=== PATIENT | female | born 1990 | race Hispanic/Latino ===

== ENCOUNTER 2023-06-01 21:04 | Emergency (ER) | payer SELFPAY ==
[2023-06-01] MEDS ORDERED: ONDANSETRON 4 MG/2 ML VIAL ONE (21:35)
[2023-06-01] MEDS ORDERED: NA CHLORIDE 0.9% 1,000 ML ONE (21:35)
[2023-06-01] MEDS ORDERED: MORPHINE 4 MG/ML SYR ONE (21:35)
[2023-06-01 21:58] LABS: Absolute Lymphocytes (CBC) 0.4 K/uL (0.7-4.9); Hematocrit 36.3 % (36.0-45.0); Lymphocytes % 5.6 % (15.3-44.8); MCV 78.9 fL (80-100); Platelets 236 thou/uL (152-406)
[2023-06-01 21:59] LABS: Specific Gravity 1.025 (1.005-1.030)
[2023-06-01 22:00] LABS: Specific Gravity 1.025 (1.005-1.030); Urine Bacteria None Seen /HPF (<20); Urine Bilirubin 1+ (Negative); Urine Blood Negative (Negative); Urine Clarity Extremely Turbid (Clear); Urine Color Dark-Yellow (Yellow); Urine Glucose NEGATIVE (Negative); Urine Mucus Slight /HPF (None Seen); Urine Protein 1+ (Negative); Urine RBC <5 /HPF (None Seen); Urine Urobilinogen 3+ (Normal); Urine pH 7.5 (5.0-7.0)
[2023-06-01 22:20] LABS: Albumin 3.9 g/dL (3.4-5.0); Bilirubin Total 2.6 mg/dL (0.2-1.0); Potassium 3.2 mEq/L (3.5-5.1)
[2023-06-01 22:40] LABS: Platelet Estimate ADEQ; White Blood Cell Scan OK (OK)
[2023-06-01 22:41] LABS: Blood Morphology Comment NOT SEEN (NOT SEEN)
--- NOTE | 2023-06-01 22:41 | RAD REPORT ---
EXAM DESCRIPTION: US - Abdomen Exam Limited - 06/01/2023 10:16 pm CLINICAL HISTORY: eval gallbladder COMPARISON: No comparisons TECHNIQUE: Sonographic grayscale and color flow images of the right upper abdominal quadrant were obtained. FINDINGS: The gallbladder demonstrates multiple echogenic shadowing stones. No pericholecystic fluid . Gallbladder wall thickness at the upper limit of normal, 3 millimeter. The common bile duct is prom inent measuring 7 mm. The liver demonstrates no findings of intrahepatic biliary dilatation. IMPRESSION: Cholelithiasis and borderline gallbladder wall thickening. Please correlate clinically f or evidence of acute cholecystitis. Prominent common bile duct, measuring 7 millimeter in caliber, without evidence of common duct stones .
--- NOTE | 2023-06-01 22:58 | EDPHYS ---
Physician Documentation [facility] Name: Marilee Watkins Age: 32 yrs Sex: Female : 1990 Arrival Date: 06/01/2023 Time: 21:04 Bed 2 Private MD: ED Physician Evaristo Motta HPI: 06/01 21:15 This 32 yrs old Female presents to ER via Ambulatory with complaints of ec2 Abdominal Pain. 21:15 Patient arrives today due to concern for right upper quadrant abdominal pain. Patient ec2 reports that she has been having right upper quadrant abdominal pain for some time, states that she was previously diagnosed with gallstones and is having return of pain. Patient reports some nausea and vomiting, no issues with stool output, no urinary problems. Does report subjective fevers and chills. Reports that she has had previous .. Historical: - Allergies: 21:14 No Known Allergies; ap3 - Home Meds: 21:14 None [Active]; ap3 - PMHx: 21:14 None; ap3 - Immunization history:: Client reports receiving the 2nd dose of the Covid vaccine. - Social history:: Smoking status: Patient denies any tobacco usage or history of. ROS: 21:15 Constitutional: abd pain ec2 Exam: 21:15 Constitutional: GEN: NAD Head: atraumatic Eyes: EOMI Ears: External ears are ec2 normal. CV: regular rate LUNGS: no respiratory distress ABD: non-distended SKIN: no evidence of rashes MSK: no evidence of trauma NEURO: moves all extremities equally Vital Signs: 21:13 BP 122 / 82; Pulse 77; Resp 18; Temp 98.1; Pulse Ox 100% ; ap3 21:46 BP 116 / 66; Pulse 81; Resp 18 S; Pulse Ox 100% on R/A; jw7 22:44 BP 110 / 73; Pulse 75; Resp 17 S; Pulse Ox 100% on R/A; jw7 23:32 BP 122 / 76; Pulse 86; Resp 16 S; Pulse Ox 100% on R/A; jw7 06/02 00:15 BP 118 / 79; Pulse 80; Resp 17 S; Pulse Ox 99% on R/A; jw7 00:45 Weight 52 kg; rv1 01:15 BP 116 / 77; Pulse 78; Resp 16 S; Pulse Ox 100% on R/A; jw7 02:30 BP 114 / 82; Pulse 72; Resp 16 S; Pulse Ox 100% on R/A; jw7 03:26 BP 102 / 73; Pulse 83; Resp 16; Pulse Ox 100% ; bp MDM: 06/01 21:08 Patient medically screened. ec2 21:15 ED course: Patient arrives today due to concern for right upper quadrant abdominal ec2 pain. Examination as such, will obtain lab work, complete today with IV morphine, Zofran, crystalloid and obtain ultrasound. Currently considering gallstones, cholecystitis, low suspicion for pancreatitis, will suspicion for urinary tract or pyelonephritis.. 22:53 ED course: Patient's lab work is remarkable for reassuring CBC, metabolic profile with ec2 slight hypokalemia, LFT abnormality noted, urine that is infectious appearing with some leuk esterase present, ketones present as well. Ultrasound shows cholelithiasis with gallbladder wall thickening, also shows 7 mm CBD without evidence of stone present. Patient is tender in the right upper quadrant, my concern would be for possible choledocholithiasis with concurrent cholecystitis. Patient required transfer to a facility with GI capabilities given the concern for choledocholithiasis. . 06/02 02:33 ED course: I discussed case with transfer center, [facility] will accept, I ec2 discussed case with Dr. Santillan, hospitalist who agrees to except patient for admission. GI and surgery to consult.. 02:34 Data reviewed: vital signs. ec2 06/01 21:14 Order name: CBC with Diff; Complete Time: 22:51 ec2 06/01 21:14 Order name: CMP; Complete Time: 22:51 ec2 06/01 21:14 Order name: Lipase; Complete Time: 22:51 ec2 06/01 21:14 Order name: Urinalysis w/ reflexes; Complete Time: 22:51 ec2 06/01 21:14 Order name: Test, Urine; Complete Time: 22:51 ec2 06/01 22:02 Order name: CBC Smear Scan; Complete Time: 22:51 EDMS 06/01 21:14 Order name: US Abdomen Limited; Complete Time: 22:51 ec2 06/01 21:14 Order name: IV Saline Lock; Complete Time: 21:27 ec2 06/01 21:14 Order name: Labs collected and sent; Complete Time: 21:27 ec2 Administered Medications: 06/01 21:46 Drug: morphine IVP or IV 4 mg IVP once over 4 mins Route: IVP; Infused Over: 4 mins; jw7 Site: right antecubital; 22:57 Follow up: Response: No adverse reaction; Marked relief of symptoms jw7 21:46 Drug: Ondansetron IVP 4 mg IVP once; over 2 minutes Route: IVP; Site: right antecubital;jw7 22:57 Follow up: Response: No adverse reaction; Marked relief of symptoms jw7 21:46 Drug: NS 0.9% IV 1000 ml IV at 1 bolus Per protocol; 1000 mL bolus Route: IV; Rate: 1 jw7 bolus; Site: right antecubital; 23:32 Follow up: Response: No adverse reaction; IV Status: Completed infusion; IV Intake: jw7 1000ml 23:02 Drug: Rocephin IV 1 grams IV at calculated rate once; Given slow IV push per pharmacy bp instructions Route: IV; Rate: calculated rate; Site: right antecubital; 06/02 02:46 Follow up: Response: No adverse reaction; IV Status: Completed infusion; IV Intake: [id number] 06/01 23:02 Drug: metroNIDAZOLE IVPB 500 mg 100 ml IVPB at 200 ml/hr once over 30 mins Volume: 100 bp ml; Route: IVPB; Rate: 200 ml/hr; Infused Over: 30 mins; Site: right antecubital; 06/02 02:46 Follow up: Response: No adverse reaction; IV Status: Completed infusion; IV Intake: jw7 100ml 01:03 Drug: morphine IVP or IV 4 mg IVP once over 4 mins Route: IVP; Infused Over: 4 mins; jw7 Site: right antecubital; 02:47 Follow up: Response: No adverse reaction; Marked relief of symptoms jw7 Disposition Summary: 06/01/23 22:58 Transfer Ordered Notes: Reason: Higher level of care ec2 Condition: Stable ec2 Problem: new ec2 Symptoms: have improved ec2 Transfer Location: [facility](06/01/23 23:38) rv1 Accepting Physician: Dr. Santillan, hospitalist, [facility](06/02/23 03:46) jw7 Diagnosis - Choledocholithiasis ec2 - Acute cholecystitis ec2 Forms: - Medication Reconciliation Form ec2 - SBAR form ec2 Signatures: Dispatcher [employer] EDNasim Currie, RN RN bp Rach Gilmore RN RN ap3 Mony García RN RN jw7 RandallKaren zambrano rv1 Evaristo Motta MD MD ec2 Corrections: (The following items were deleted from the chart) 06/01 23:38 22:58 Transfer ec2 rv1 23:38 22:58 Other Acute Care Facility ec2 rv1 06/02 02:34 02:33 ED course: Repeat EKG independently reviewed and interpreted by me, shows sinus ec2 tachycardia, rate 102, no acute ST segment elevations, intervals are nonconcerning.. ec2 02:34 06/01 23:38 Transfer rv1 ec2 06/02 03:46 02:34 Dr. Santillan, hospitalist, [facility] ec2 jw7
--- NOTE | 2023-06-01 22:58 | ER ---
Nurse's Notes [facility] Name: Marilee Watkins Age: 32 yrs Sex: Female : 1990 Arrival Date: 06/01/2023 Time: 21:04 Bed 2 Private MD: Diagnosis: Choledocholithiasis;Acute cholecystitis Presentation: 06/01 21:13 Chief complaint: Patient states: she has been having upper right abdominal pain that ap3 started today with nausea and vomiting. patient reports normal urine and bowel habits. Coronavirus screen: At this time, the client does not indicate any symptoms associated with coronavirus-19. Ebola Screen: No symptoms or risks identified at this time. Initial Sepsis Screen: Does the patient meet any 2 criteria? No. Patient's initial sepsis screen is negative. Does the patient have a suspected source of infection? Yes: Acute abdominal pain. Risk Assessment: Do you want to hurt yourself or someone else? Patient reports no desire to harm self or others. Onset of symptoms was June 01, 2023. 21:13 Method Of Arrival: Ambulatory ap3 21:13 Acuity: RAFAEL 3 ap3 Triage Assessment: 21:15 General: Appears uncomfortable, Behavior is calm, cooperative, appropriate for age. ap3 Pain: Complains of pain in right upper quadrant Pain began today. Neuro: Level of Consciousness is awake, alert, obeys commands, Oriented to person, place, time, situation. Cardiovascular: Patient's skin is warm and dry. Respiratory: Airway is patent Respiratory effort is even, unlabored, Respiratory pattern is regular, symmetrical. GI: Reports upper abdominal pain, nausea, vomiting. Historical: - Allergies: 21:14 No Known Allergies; ap3 - Home Meds: 21:14 None [Active]; ap3 - PMHx: 21:14 None; ap3 - Immunization history:: Client reports receiving the 2nd dose of the Covid vaccine. - Social history:: Smoking status: Patient denies any tobacco usage or history of. Screenin:15 [facility] ED Fall Risk Assessment (Adult) History of falling in the last 3 months, ap3 including since admission No falls in past 3 months (0 pts). Abuse screen: Denies threats or abuse. Nutritional screening: No deficits noted. Tuberculosis screening: No symptoms or risk factors identified. Assessment: 21:27 General: see triage assessment. jw7 22:42 Reassessment: Patient appears in no apparent distress at this time. Patient and/or jw7 family updated on plan of care and expected duration. Pain level reassessed. Patient is alert, oriented x 3, equal unlabored respirations, skin warm/dry/pink. Reassessment: Patient states feeling better. 23:31 Reassessment: Patient appears in no apparent distress at this time. No changes from jw7 previously documented assessment. Patient and/or family updated on plan of care and expected duration. Pain level reassessed. Patient is alert, oriented x 3, equal unlabored respirations, skin warm/dry/pink. 06/02 00:45 Reassessment: Patient appears in no apparent distress at this time. No changes from jw7 previously documented assessment. Patient and/or family updated on plan of care and expected duration. Pain level reassessed. Patient is alert, oriented x 3, equal unlabored respirations, skin warm/dry/pink. 01:40 Reassessment: Patient appears in no apparent distress at this time. No changes from jw7 previously documented assessment. Patient and/or family updated on plan of care and expected duration. Pain level reassessed. Patient is alert, oriented x 3, equal unlabored respirations, skin warm/dry/pink. 02:37 Reassessment: Patient appears in no apparent distress at this time. No changes from jw7 previously documented assessment. Patient and/or family updated on plan of care and expected duration. Pain level reassessed. Patient is alert, oriented x 3, equal unlabored respirations, skin warm/dry/pink. 02:45 General: accepted at [facility] room 6B 6033. [facility] able to transport pt as6 . 03:26 Reassessment: REPORT TO JO ANN RENEE FOR [address] [facility]. bp 03:37 Reassessment: Patient appears in no apparent distress at this time. No changes from jw7 previously documented assessment. Patient and/or family updated on plan of care and expected duration. Pain level reassessed. Patient is alert, oriented x 3, equal unlabored respirations, skin warm/dry/pink. Vital Signs: 06/01 21:13 BP 122 / 82; Pulse 77; Resp 18; Temp 98.1; Pulse Ox 100% ; ap3 21:46 BP 116 / 66; Pulse 81; Resp 18 S; Pulse Ox 100% on R/A; jw7 22:44 BP 110 / 73; Pulse 75; Resp 17 S; Pulse Ox 100% on R/A; jw7 23:32 BP 122 / 76; Pulse 86; Resp 16 S; Pulse Ox 100% on R/A; jw7 06/02 00:15 BP 118 / 79; Pulse 80; Resp 17 S; Pulse Ox 99% on R/A; jw7 00:45 Weight 52 kg; rv1 01:15 BP 116 / 77; Pulse 78; Resp 16 S; Pulse Ox 100% on R/A; jw7 02:30 BP 114 / 82; Pulse 72; Resp 16 S; Pulse Ox 100% on R/A; jw7 03:26 BP 102 / 73; Pulse 83; Resp 16; Pulse Ox 100% ; bp ED Course: 06/01 19:20 Patient has correct armband on for positive identification. Placed in gown. Bed in low jw7 position. Call light in reach. 21:07 Patient arrived in ED. mr 21:08 Evaristo Motta MD is Attending Physician. ec2 21:14 Triage completed. ap3 21:15 Arm band placed on right wrist. ap3 21:26 Mony García RN is Primary Nurse. jw7 21:26 Initial lab(s) drawn, by me, sent to lab. Inserted saline lock: 20 gauge in right jw7 antecubital area, using aseptic technique. Blood collected. 22:20 US Abdomen Limited In Process Unspecified. EDMS 23:40 Attempted to Initiate transfer with [facility] but no answer. Will try back. rv1 23:58 Attempted to initiate transfer with [facility], No answer. Will try back. rv1 06/02 00:41 Initiated transfer with Jackson at [facility]. rv1 00:46 [facility] declined due to capacity. rv1 00:51 Initiated transfer with Jen at [facility]. rv1 03:26 No provider procedures requiring assistance completed. Patient transferred, IV remains bp in place. 03:37 Provided Education on: need for admit. jw7 Administered Medications: 06/01 21:46 Drug: morphine IVP or IV 4 mg IVP once over 4 mins Route: IVP; Infused Over: 4 mins; jw7 Site: right antecubital; 22:57 Follow up: Response: No adverse reaction; Marked relief of symptoms jw7 21:46 Drug: Ondansetron IVP 4 mg IVP once; over 2 minutes Route: IVP; Site: right antecubital;jw7 22:57 Follow up: Response: No adverse reaction; Marked relief of symptoms jw7 21:46 Drug: NS 0.9% IV 1000 ml IV at 1 bolus Per protocol; 1000 mL bolus Route: IV; Rate: 1 jw7 bolus; Site: right antecubital; 23:32 Follow up: Response: No adverse reaction; IV Status: Completed infusion; IV Intake: jw7 1000ml 23:02 Drug: Rocephin IV 1 grams IV at calculated rate once; Given slow IV push per pharmacy bp instructions Route: IV; Rate: calculated rate; Site: right antecubital; 06/02 02:46 Follow up: Response: No adverse reaction; IV Status: Completed infusion; IV Intake: [id number] 06/01 23:02 Drug: metroNIDAZOLE IVPB 500 mg 100 ml IVPB at 200 ml/hr once over 30 mins Volume: 100 bp ml; Route: IVPB; Rate: 200 ml/hr; Infused Over: 30 mins; Site: right antecubital; 06/02 02:46 Follow up: Response: No adverse reaction; IV Status: Completed infusion; IV Intake: jw7 100ml 01:03 Drug: morphine IVP or IV 4 mg IVP once over 4 mins Route: IVP; Infused Over: 4 mins; jw7 Site: right antecubital; 02:47 Follow up: Response: No adverse reaction; Marked relief of symptoms jw7 Medication: 03:37 VIS not applicable for this client. jw7 Intake: 06/01 23:32 IV: 1000ml; Total: 1000ml. jw7 06/02 02:46 IV: 10ml; Total: 1010ml. jw7 02:46 IV: 100ml; Total: 1110ml. jw7 Outcome: 06/01 22:58 ER care complete, transfer ordered by ec2 06/02 03:25 Transferred by ground EMS Note: [facility]33 bp Condition: stable Instructed on the need for transfer, 03:46 Patient left the ED. jw7 Signatures: Dispatcher [employer] EDCA Carissa Perry, Nasim Hua, VÍCTOR RN bp Rach Gilmore RN RN ap3 Rudy Fay, VÍCTOR RN as6 Mony García, RN RN jw7 Karen Randall rv1 Evaristo Motta MD MD ec2
[2023-06-01] MEDS ORDERED: CEFTRIAXONE 1000 MG/VIAL ONE (23:11)
[2023-06-01] MEDS ORDERED: METRONIDAZOLE 500mg IVPB 500 MG/100 ML BAG IV ONE (23:11)
[2023-06-02] MEDS ORDERED: MORPHINE 4 MG/ML SYR ONE (01:15)
[2023-06-02 04:09] VITALS: TEMP 98.1
[2023-06-02 04:27] VITALS: O2SAT 100
[2023-06-02 04:30] VITALS: BP 102/73
== END 2023-06-02 03:46 | disposition short-term general hospital (02) ==
LOC: ER 21:04
DX: K80.42 Calculus of bile duct with acute cholecystitis without obstruction (principal)
CPT/HCPCS: 36415; 76705; 80053; 81001; 81025; 83690; 85025; 96361; 96365; 96366; 96368; 96375; 99285; J0696; J2405; J7030